=== PATIENT | male | born 1960 | race Caucasian/White ===

== ENCOUNTER 2017-09-16 08:22 | Inpatient (IN) | payer OTHER ==
[~2017-09-16] VITALS: Ht 185.4 cm; Wt 111.4 kg
[~2017-09-16 08:22] MED LIST: ACID RELIEF; ALBU90OI INH; ALPR.25 PO; Amitriptyline100 MG PO; Aspirin EC81 MG PO; Atrovent Inha12.9 GM INH; BACL10 PO; CEPH500 PO; CHLO10 PO; CHLO25 PO; CHLO5 PO; CITA20 PO; DIPH50 PO; DOXY100 PO; DULO60 PO; Desyrel50 MG PO; Diclofenac Sodi50 MG; FAMO20 PO; GABA100 PO; GABA300 PO; GABA400 PO; GABAPENTIN; HYDACE10B PO; IBUP400 PO; IBUP600 PO; IBUP800 PO; KETO10 PO; LIBRIUM; LOSA50 PO; MECL25; MELO7.5; METO100 PO; METO50 PO; MOTRIN; MULVITMIND PO; Mobic15 MG PO; NAPR500 PO; Neurontin 100100 MG PO; PROM25 PO; Pepcid40 MG PO; RXTRAM50 PO; SULTRIDS PO; THIA100 PO; TRAM50 PO; TRAZ; TRAZ100 PO; TRAZ150T57 PO; TRAZ50; TRAZ50 PO; Therapeutic M1 EAC4 PO; Trazodone HCl300 MG; Ultram50 MG PO; ZESTORETIC 20-121 EA PO; Zithromax250 MG PO; [UNRECOGNIZED DRUG - REMARK]; [UNRECOGNIZED DRUG - REMARK]
[2017-09-16 08:57] LABS: BASOPHILS ABSOLUTE AUTO 0.06 K/mm3 (0.00-0.23); BASOPHILS PERCENT AUTO 1 % (0-2); EOSINOPHILS ABSOLUTE AUTO 0.01 K/mm3 (0.00-0.68); EOSINOPHILS PERCENT AUTO 0 % (0-6); Hematocrit 43.7 % (37.0-53.0); Hemoglobin 14.5 g/dL (13.5-17.5); IMMATURE GRAN ABSOLUTE AUTO 0.03 K/mm3 (0.00-0.10); IMMATURE GRAN PERCENT AUTO 1 % (0-1); LYMPHOCYTES PERCENT AUTO 15 % (21-46); MONOCYTES ABSOLUTE AUTO 1.02 K/mm3 (0.16-1.47); MONOCYTES PERCENT AUTO 17 % (4-13); Mean Corpuscular HGB 28.5 pg (26.0-34.0); Mean Corpuscular HGB Conc 33.2 g/dL (31.5-36.5); Mean Corpuscular Volume 86 fL (80-100); Mean Platelet Volume 10.8 fL (9.1-12.4); NEUTROPHILS ABSOLUTE AUTO 4.14 K/mm3 (1.96-9.15); NEUTROPHILS PERCENT AUTO 67 % (41-73); Platelet Count 121 K/mm3 (150-400); RDW Coefficient Variation 16.2 % (11.7-14.2); RDW Standard Deviation 50.8 fL (35.1-46.3); Red Blood Cell Count 5.08 M/mm3 (4.30-5.90); White Blood Cell Count 6.16 K/mm3 (4.00-11.30)
[2017-09-16 09:12] LABS: Alanine Aminotransfer (ALT/SGP 150 U/L (12-78); Albumin, Blood 3.6 g/dL (3.4-5.0); Albumin/Globulin Ratio 0.8 (0.8-1.8); Alk Phos 60 U/L (50-136); Anion Gap 22 mmol/L (6-16); Aspartate Aminotrans (AST/SGOT 208 U/L (12-37); Bilirubin, Total 1.2 mg/dL (0.1-1.0); Blood Urea Nitrogen 10 mg/dL (8-24); Bun/Creatinine Ratio 11.6 (12.0-20.0); CO2, Blood 13 mmol/L (21-32); Calcium, Blood 9.3 mg/dL (8.5-10.1); Chloride, Blood 102 mmol/L (98-108); Creatinine, Blood 0.86 mg/dL (0.60-1.20); Ethanol (Alcohol), Blood, Med 34 mg/dL; Globulin, Blood 4.4 g/dL (2.2-4.0); Glomerular Filtration Rate >60 (60-); Glucose, Blood 130 mg/dL (70-99); Potassium, Blood 3.8 mmol/L (3.5-5.5); Sodium, Blood 137 mmol/L (136-145); Troponin I <0.015 ng/mL (0.000-0.040)
[2017-09-16] MEDS ORDERED: ALPR.25 (11:43)
[2017-09-17 05:09] LABS: Anion Gap 9 mmol/L (6-16); Blood Urea Nitrogen 19 mg/dL (8-24); Bun/Creatinine Ratio 19.9 (12.0-20.0); CO2, Blood 28 mmol/L (21-32); Calcium, Blood 8.7 mg/dL (8.5-10.1); Chloride, Blood 101 mmol/L (98-108); Creatinine, Blood 0.96 mg/dL (0.60-1.20); Glomerular Filtration Rate >60 (60-); Glucose, Blood 90 mg/dL (70-99); Potassium, Blood 3.8 mmol/L (3.5-5.5); Sodium, Blood 138 mmol/L (136-145)
[2017-09-17 06:17] LABS: U Amphetamine Screen Not Detected; U Barbituate Screen Not Detected; U Benzodiazapine Screen DETECTED; U Cocaine Screen Not Detected; U Methadone Screen Not Detected; U Methamphetamine Screen Not Detected
[2017-09-17 06:18] LABS: U Buprenorphine Screen Not Detected; U Cannabinoids Screen Not Detected; U Opiates Screen DETECTED; U Oxycodone Screen Not Detected; U Phencyclidine Screen Not Detected; U Propoxyphene Screen Not Detected
[2017-09-17 08:16] LABS: Adenovirus F 40/41 Not Detected (NOT DETECT); Astrovirus Not Detected (NOT DETECT); Campylobacter Sp Not Detected (NOT DETECT); Cryptosporidium Not Detected (NOT DETECT); Cyclospora Cayetanensis Not Detected (NOT DETECT); E. Coli O157 Not Detected (NOT DETECT); Entamoeba Histolytica Not Detected (NOT DETECT); Enteroaggregative E. coli-EAEC Not Detected (NOT DETECT); Enteropathogenic E. coli-EPEC Not Detected (NOT DETECT); Enterotoxigenic E. coli-ETEC Not Detected (NOT DETECT); Giardia Lamblia Not Detected (NOT DETECT); Norovirus GI/GII Not Detected (NOT DETECT); Plesiomonas Shigelloides Not Detected (NOT DETECT); Rotavirus A Not Detected (NOT DETECT); Salmonella Sp Not Detected (NOT DETECT); Sapovirus Not Detected (NOT DETECT); Shiga Toxin-prod E. coli-STEC Not Detected (NOT DETECT); Shigella/Enteroin E. coli-EIEC Not Detected (NOT DETECT); Vibrio Cholerae Not Detected (NOT DETECT); Vibrio Sp Not Detected (NOT DETECT); Yersinia Enterocolitica Not Detected (NOT DETECT)
[2017-09-20 06:24] LABS: Anion Gap 7 mmol/L (6-16); Blood Urea Nitrogen 13 mg/dL (8-24); Bun/Creatinine Ratio 16.6 (12.0-20.0); CO2, Blood 25 mmol/L (21-32); Calcium, Blood 8.8 mg/dL (8.5-10.1); Chloride, Blood 108 mmol/L (98-108); Creatinine, Blood 0.79 mg/dL (0.60-1.20); Glomerular Filtration Rate >60 (60-); Glucose, Blood 119 mg/dL (70-99); Magnesium, Blood 1.9 mg/dL (1.6-2.4); Potassium, Blood 3.9 mmol/L (3.5-5.5); Sodium, Blood 140 mmol/L (136-145)
[2017-09-22 12:41] LABS: Influenza A Negative (NEGATIVE); Influenza B Negative (NEGATIVE)
[2017-09-22 13:10] LABS: BASOPHILS ABSOLUTE AUTO 0.11 K/mm3 (0.00-0.23); BASOPHILS PERCENT AUTO 2 % (0-2); EOSINOPHILS ABSOLUTE AUTO 0.08 K/mm3 (0.00-0.68); EOSINOPHILS PERCENT AUTO 2 % (0-6); Hematocrit 40.3 % (37.0-53.0); Hemoglobin 12.9 g/dL (13.5-17.5); IMMATURE GRAN ABSOLUTE AUTO 0.03 K/mm3 (0.00-0.10); IMMATURE GRAN PERCENT AUTO 1 % (0-1); LYMPHOCYTES PERCENT AUTO 15 % (21-46); MONOCYTES ABSOLUTE AUTO 1.79 K/mm3 (0.16-1.47); MONOCYTES PERCENT AUTO 34 % (4-13); Mean Corpuscular HGB 29.2 pg (26.0-34.0); Mean Platelet Volume 11.2 fL (9.1-12.4); NEUTROPHILS ABSOLUTE AUTO 2.41 K/mm3 (1.96-9.15); NEUTROPHILS PERCENT AUTO 46 % (41-73); Platelet Count 141 K/mm3 (150-400); RDW Coefficient Variation 16.2 % (11.7-14.2); RDW Standard Deviation 54.3 fL (35.1-46.3); Red Blood Cell Count 4.42 M/mm3 (4.30-5.90); White Blood Cell Count 5.22 K/mm3 (4.00-11.30)
[2017-09-22 13:18] LABS: Mean Corpuscular Volume 91 fL (80-100)
[2017-09-22 13:22] LABS: Source, Urine Catheter
[2017-09-22 13:27] LABS: Alanine Aminotransfer (ALT/SGP 159 U/L (12-78); Albumin, Blood 3.3 g/dL (3.4-5.0); Albumin/Globulin Ratio 0.8 (0.8-1.8); Alk Phos 42 U/L (50-136); Anion Gap 8 mmol/L (6-16); Aspartate Aminotrans (AST/SGOT 177 U/L (12-37); Bilirubin, Total 0.5 mg/dL (0.1-1.0); Blood Urea Nitrogen 13 mg/dL (8-24); Bun/Creatinine Ratio 12.9 (12.0-20.0); CO2, Blood 24 mmol/L (21-32); Calcium, Blood 8.8 mg/dL (8.5-10.1); Chloride, Blood 101 mmol/L (98-108); Creatinine, Blood 1.01 mg/dL (0.60-1.20); Globulin, Blood 4.3 g/dL (2.2-4.0); Glomerular Filtration Rate >60 (60-); Glucose, Blood 95 mg/dL (70-99); Potassium, Blood 4.1 mmol/L (3.5-5.5); Sodium, Blood 133 mmol/L (136-145); Total Protein, Blood 7.6 g/dL (6.4-8.2)
[2017-09-22 13:36] LABS: Bilirubin, Urine Neg (Neg); Blood, Urine Neg (Neg); Glucose Qualitative, Urine Neg (Neg); Ketones, Urine Neg (Neg); Leukocyte Esterase, Urine Neg (Neg); Nitrite, Urine Neg (Neg); Protein, Urine Neg (Neg); Specific Gravity, Urine 1.005 (1.003-1.022); Urobilinogen, Urine NORM (Normal)
[2017-09-22 14:16] LABS: Appearance, Urine Clear (Clear); Color, Urine Yellow (P-Yellow)
[2017-09-22 14:57] LABS: CPK Creatine Kinase 101 U/L (39-308)
[2017-09-22 20:07] LABS: BASOPHILS ABSOLUTE AUTO 0.09 K/mm3 (0.00-0.23); BASOPHILS PERCENT AUTO 2 % (0-2); EOSINOPHILS ABSOLUTE AUTO 0.06 K/mm3 (0.00-0.68); EOSINOPHILS PERCENT AUTO 1 % (0-6); Hematocrit 36.4 % (37.0-53.0); Hemoglobin 11.6 g/dL (13.5-17.5); IMMATURE GRAN ABSOLUTE AUTO 0.01 K/mm3 (0.00-0.10); IMMATURE GRAN PERCENT AUTO 0 % (0-1); LYMPHOCYTES ABSOLUTE AUTO 0.67 K/mm3 (0.84-5.20); LYMPHOCYTES PERCENT AUTO 16 % (21-46); MONOCYTES ABSOLUTE AUTO 1.09 K/mm3 (0.16-1.47); MONOCYTES PERCENT AUTO 26 % (4-13); Mean Corpuscular HGB Conc 31.9 g/dL (31.5-36.5); Mean Corpuscular Volume 91 fL (80-100); Mean Platelet Volume 10.6 fL (9.1-12.4); NEUTROPHILS PERCENT AUTO 55 % (41-73); Platelet Count 144 K/mm3 (150-400); RDW Coefficient Variation 15.9 % (11.7-14.2); RDW Standard Deviation 53.4 fL (35.1-46.3); White Blood Cell Count 4.22 K/mm3 (4.00-11.30)
[2017-09-22 22:20] LABS: Source, Urine Catheter
[2017-09-22 22:26] LABS: Bilirubin, Urine Neg (Neg); Blood, Urine 5+ (Neg); Glucose Qualitative, Urine Neg (Neg); Ketones, Urine Neg (Neg); Leukocyte Esterase, Urine 1+ (Neg); Nitrite, Urine Neg (Neg); Protein, Urine 1+ (Neg); Urobilinogen, Urine NORM (Normal)
[2017-09-22 22:27] LABS: Appearance, Urine Bloody (Clear); Color, Urine Pale Yellow (P-Yellow)
[2017-09-22 22:50] LABS: Bacteria Not Seen /hpf; Red Blood Cells, Urine 50-100 /hpf (0-2); Squamous Epithelial Cells Not Seen /hpf (Few)
[2017-09-23 03:46] LABS: BASOPHILS ABSOLUTE AUTO 0.06 K/mm3 (0.00-0.23); BASOPHILS PERCENT AUTO 1 % (0-2); EOSINOPHILS ABSOLUTE AUTO 0.05 K/mm3 (0.00-0.68); EOSINOPHILS PERCENT AUTO 1 % (0-6); Hematocrit 39.5 % (37.0-53.0); Hemoglobin 12.3 g/dL (13.5-17.5); IMMATURE GRAN ABSOLUTE AUTO 0.01 K/mm3 (0.00-0.10); IMMATURE GRAN PERCENT AUTO 0 % (0-1); LYMPHOCYTES ABSOLUTE AUTO 0.75 K/mm3 (0.84-5.20); LYMPHOCYTES PERCENT AUTO 13 % (21-46); MONOCYTES ABSOLUTE AUTO 1.51 K/mm3 (0.16-1.47); MONOCYTES PERCENT AUTO 26 % (4-13); Mean Corpuscular HGB 28.4 pg (26.0-34.0); Mean Corpuscular HGB Conc 31.1 g/dL (31.5-36.5); Mean Corpuscular Volume 91 fL (80-100); Mean Platelet Volume 10.9 fL (9.1-12.4); NEUTROPHILS ABSOLUTE AUTO 3.55 K/mm3 (1.96-9.15); NEUTROPHILS PERCENT AUTO 60 % (41-73); Platelet Count 143 K/mm3 (150-400); RDW Coefficient Variation 15.9 % (11.7-14.2); RDW Standard Deviation 53.1 fL (35.1-46.3); Red Blood Cell Count 4.33 M/mm3 (4.30-5.90); White Blood Cell Count 5.93 K/mm3 (4.00-11.30)
[2017-09-23 04:07] LABS: Magnesium, Blood 1.7 mg/dL (1.6-2.4)
[2017-09-23 04:08] LABS: Alanine Aminotransfer (ALT/SGP 117 U/L (12-78); Albumin, Blood 2.9 g/dL (3.4-5.0); Albumin/Globulin Ratio 0.7 (0.8-1.8); Alk Phos 36 U/L (50-136); Anion Gap 4 mmol/L (6-16); Aspartate Aminotrans (AST/SGOT 99 U/L (12-37); Bilirubin, Total 0.5 mg/dL (0.1-1.0); Blood Urea Nitrogen 10 mg/dL (8-24); Bun/Creatinine Ratio 10.9 (12.0-20.0); CO2, Blood 29 mmol/L (21-32); Chloride, Blood 107 mmol/L (98-108); Creatinine, Blood 0.92 mg/dL (0.60-1.20); Globulin, Blood 4.1 g/dL (2.2-4.0); Glomerular Filtration Rate >60 (60-); Glucose, Blood 93 mg/dL (70-99); Potassium, Blood 3.7 mmol/L (3.5-5.5); Sodium, Blood 140 mmol/L (136-145)
[2017-09-23 04:09] LABS: Calcium, Blood 7.6 mg/dL (8.5-10.1)
[2017-09-24 10:40] LABS: Vancomycin, Trough 10.6 ug/mL (5.0-10.0)
[2017-09-25 04:40] LABS: Anion Gap 9 mmol/L (6-16); Blood Urea Nitrogen 5 mg/dL (8-24); Bun/Creatinine Ratio 6.4 (12.0-20.0); CO2, Blood 25 mmol/L (21-32); Calcium, Blood 7.7 mg/dL (8.5-10.1); Chloride, Blood 108 mmol/L (98-108); Creatinine, Blood 0.78 mg/dL (0.60-1.20); Glomerular Filtration Rate >60 (60-); Glucose, Blood 115 mg/dL (70-99); Potassium, Blood 3.4 mmol/L (3.5-5.5); Sodium, Blood 142 mmol/L (136-145)
[2017-09-27 06:38] LABS: Anion Gap 6 mmol/L (6-16); Blood Urea Nitrogen 9 mg/dL (8-24); Bun/Creatinine Ratio 13.5 (12.0-20.0); CO2, Blood 28 mmol/L (21-32); Calcium, Blood 8.5 mg/dL (8.5-10.1); Chloride, Blood 110 mmol/L (98-108); Creatinine, Blood 0.67 mg/dL (0.60-1.20); Glomerular Filtration Rate >60 (60-); Glucose, Blood 98 mg/dL (70-99); Potassium, Blood 3.9 mmol/L (3.5-5.5); Sodium, Blood 144 mmol/L (136-145)
[2017-09-30 06:06] LABS: Anion Gap 7 mmol/L (6-16); Blood Urea Nitrogen 10 mg/dL (8-24); Bun/Creatinine Ratio 13.9 (12.0-20.0); CO2, Blood 29 mmol/L (21-32); Calcium, Blood 9.2 mg/dL (8.5-10.1); Chloride, Blood 104 mmol/L (98-108); Creatinine, Blood 0.72 mg/dL (0.60-1.20); Glomerular Filtration Rate >60 (60-); Glucose, Blood 113 mg/dL (70-99); Potassium, Blood 3.8 mmol/L (3.5-5.5); Sodium, Blood 140 mmol/L (136-145)
[2017-10-08 05:27] LABS: BASOPHILS ABSOLUTE AUTO 0.06 K/mm3 (0.00-0.23); BASOPHILS PERCENT AUTO 1 % (0-2); EOSINOPHILS ABSOLUTE AUTO 0.11 K/mm3 (0.00-0.68); EOSINOPHILS PERCENT AUTO 2 % (0-6); Hemoglobin 11.2 g/dL (13.5-17.5); IMMATURE GRAN ABSOLUTE AUTO 0.02 K/mm3 (0.00-0.10); IMMATURE GRAN PERCENT AUTO 0 % (0-1); LYMPHOCYTES ABSOLUTE AUTO 1.61 K/mm3 (0.84-5.20); LYMPHOCYTES PERCENT AUTO 30 % (21-46); MONOCYTES ABSOLUTE AUTO 0.78 K/mm3 (0.16-1.47); MONOCYTES PERCENT AUTO 15 % (4-13); Mean Corpuscular HGB 28.1 pg (26.0-34.0); Mean Corpuscular Volume 88 fL (80-100); Mean Platelet Volume 10.2 fL (9.1-12.4); NEUTROPHILS ABSOLUTE AUTO 2.72 K/mm3 (1.96-9.15); NEUTROPHILS PERCENT AUTO 51 % (41-73); Platelet Count 372 K/mm3 (150-400); RDW Standard Deviation 52.2 fL (35.1-46.3); Red Blood Cell Count 3.99 M/mm3 (4.30-5.90)
[2017-10-08 05:51] LABS: Anion Gap 7 mmol/L (6-16); Blood Urea Nitrogen 13 mg/dL (8-24); Bun/Creatinine Ratio 17.7 (12.0-20.0); CO2, Blood 28 mmol/L (21-32); Calcium, Blood 8.6 mg/dL (8.5-10.1); Chloride, Blood 106 mmol/L (98-108); Creatinine, Blood 0.74 mg/dL (0.60-1.20); Glomerular Filtration Rate >60 (60-); Glucose, Blood 102 mg/dL (70-99); Potassium, Blood 3.8 mmol/L (3.5-5.5); Sodium, Blood 141 mmol/L (136-145)
[2017-10-25] MEDS ORDERED: CALCIUM WITH V1 EACH PO (08:36)
[2017-10-25] MEDS ORDERED: CYAN500 PO (08:43)
[2017-10-25] MEDS ORDERED: Capsaicin60 GM TOP (08:43)
[2017-10-25] MEDS ORDERED: GABA600 PO (08:43)
[2017-10-25] MEDS ORDERED: METO50ER PO (08:44)
[2017-10-25] MEDS ORDERED: NICO21TP TOP (08:45)
[2017-10-25] MEDS ORDERED: PANT40 PO (08:45)
[2017-10-25] MEDS ORDERED: QUET100 PO (08:45)
[2017-10-25] MEDS ORDERED: THIA100 PO (08:46)
[2017-10-25] MEDS ORDERED: TRAZ100 PO (08:46)
[2017-10-25] MEDS ORDERED: PRAM.125 PO (08:46)
[2017-10-25] MEDS ORDERED: XARELTO20 MG PO (08:46)
[2017-10-25] MEDS ORDERED: ASPI81CH PO (08:52)
[2017-10-25] MEDS ORDERED: MAALOX PLUS PO (08:53)
[2017-10-25] MEDS ORDERED: THERA TABLET400 MCG PO (08:56)
== END 2017-10-25 11:07 | DRG 896 ==
LOC: ER 08:22 → PCU 08:23 → ERHOLD 08:23 → PCU 14:58 → UNDODEPER 16:52 → PCU 09-17 12:21 → ERHOLD 09-17 17:13 → MEDS 09-17 17:13 → PCU 09-17 17:13 → ICUE 09-22 19:40 → PCU 09-25 18:43 → MEDS 09-26 16:05 → ENPENDDIS 10-25 08:14 → MEDS 10-25 11:07
PROVIDERS: Emergency Medicine; Family Medicine; Internal Medicine
PROC: HZ2ZZZZ Detoxification Services for Substance Abuse Treatment (ICD-10-PCS; principal; 2017-09-17)
DX: F10.27 Alcohol dependence with alcohol-induced persisting dementia (principal); G92 Toxic encephalopathy; F10.231 Alcohol dependence with withdrawal delirium; E87.2 Acidosis; I95.9 Hypotension, unspecified; G30.9 Alzheimer's disease, unspecified; G31.2 Degeneration of nervous system due to alcohol; F02.81 Dementia in other diseases classified elsewhere, unspecified severity, with behavioral disturbance; I82.4Z2 Acute embolism and thrombosis of unspecified deep veins of left distal lower extremity; I48.91 Unspecified atrial fibrillation; G62.1 Alcoholic polyneuropathy; E87.6 Hypokalemia; F17.210 Nicotine dependence, cigarettes, uncomplicated; M79.671 Pain in right foot; B19.20 Unspecified viral hepatitis C without hepatic coma; Z59.0 Homelessness; Z86.19 Personal history of other infectious and parasitic diseases; R74.0 Nonspecific elevation of levels of transaminase and lactic acid dehydrogenase [LDH]; Z91.83 Wandering in diseases classified elsewhere
CPT/HCPCS: 36415; 70450; 71045; 71046; 71260; 80048; 80053; 80202; 81001; 81003; 82140; 82550; 82607; 82746; 82947; 83605; 83735; 83880; 84443; 84484; 84550; 84600; 85025; 86702; 87040; 87507; 87804; 92523; 93005; 93010; 93306; 93970; 94760; 96365; 96366; 96368; 96375; 97110; 97116; 97162; 97530; 99285; C1751; G0480; G8978; G8979; J0713; J1650; J1956; J2060; J2405; J3010; J3370; J3411; J3475; J7030; J7042; J7050; Q9967

== ENCOUNTER 2018-02-21 14:01 | Emergency (ER) | payer OTHER ==
[~2018-02-21] VITALS: Ht 185.4 cm; Wt 99.8 kg
[~2018-02-21 14:01] MED LIST changes: +ALPR.25; +ASPI81CH PO; +CALCIUM WITH V1 EACH PO; +CYAN500 PO; +Capsaicin60 GM TOP; +GABA600 PO; +MAALOX PLUS PO; +METO50ER PO; +NICO21TP TOP; +PANT40 PO; +PRAM.125 PO; +QUET100 PO; +THERA TABLET400 MCG PO; +XARELTO20 MG PO
[2018-02-21 14:46] LABS: BASOPHILS ABSOLUTE AUTO 0.04 K/mm3 (0.00-0.23); BASOPHILS PERCENT AUTO 1 % (0-2); EOSINOPHILS ABSOLUTE AUTO 0.12 K/mm3 (0.00-0.68); EOSINOPHILS PERCENT AUTO 2 % (0-6); Hematocrit 41.9 % (37.0-53.0); Hemoglobin 13.4 g/dL (13.5-17.5); IMMATURE GRAN ABSOLUTE AUTO 0.01 K/mm3 (0.00-0.10); IMMATURE GRAN PERCENT AUTO 0 % (0-1); LYMPHOCYTES PERCENT AUTO 39 % (21-46); MONOCYTES ABSOLUTE AUTO 0.65 K/mm3 (0.16-1.47); MONOCYTES PERCENT AUTO 13 % (4-13); Mean Corpuscular HGB 26.2 pg (26.0-34.0); Mean Corpuscular Volume 82 fL (80-100); NEUTROPHILS ABSOLUTE AUTO 2.32 K/mm3 (1.96-9.15); NEUTROPHILS PERCENT AUTO 45 % (41-73); Platelet Count 216 K/mm3 (150-400); RDW Coefficient Variation 15.8 % (11.7-14.2); RDW Standard Deviation 47.9 fL (35.1-46.3); Red Blood Cell Count 5.11 M/mm3 (4.30-5.90); White Blood Cell Count 5.14 K/mm3 (4.00-11.30)
[2018-02-21 14:59] LABS: Alanine Aminotransfer (ALT/SGP 51 U/L (12-78); Albumin, Blood 3.8 g/dL (3.4-5.0); Alk Phos 66 U/L (50-136); Anion Gap 8 mmol/L (6-16); Aspartate Aminotrans (AST/SGOT 36 U/L (12-37); Bilirubin, Total 0.4 mg/dL (0.1-1.0); Blood Urea Nitrogen 18 mg/dL (8-24); CO2, Blood 27 mmol/L (21-32); Calcium, Blood 8.9 mg/dL (8.5-10.1); Chloride, Blood 106 mmol/L (98-108); Globulin, Blood 3.9 g/dL (2.2-4.0); Glomerular Filtration Rate >60 (60-); Glucose, Blood 100 mg/dL (70-99); Potassium, Blood 4.2 mmol/L (3.5-5.5); Sodium, Blood 141 mmol/L (136-145); Total Protein, Blood 7.7 g/dL (6.4-8.2); Troponin I <0.015 ng/mL (0.000-0.040)
[2018-02-21] MEDS ORDERED: ACET325 PO (15:03)
[2018-02-21] MEDS ORDERED: WARF6 PO (15:08)
== END 2018-02-21 17:20 | disposition home or self-care (01) ==
LOC: ER 14:01
PROVIDERS: Emergency Medicine
DX: R07.89 Other chest pain (principal); F41.9 Anxiety disorder, unspecified; F32.9 Major depressive disorder, single episode, unspecified; F17.210 Nicotine dependence, cigarettes, uncomplicated; F03.90 Unspecified dementia, unspecified severity, without behavioral disturbance, psychotic disturbance, mood disturbance, and anxiety; Z79.899 Other long term (current) drug therapy; Z79.01 Long term (current) use of anticoagulants
CPT/HCPCS: 71046; 80053; 84484; 85025; 93005; 93010; 99284-25

== ENCOUNTER → 2020-01-02 | Outpatient (CLI) | payer OTHER ==
[~2020-01-02] MED LIST changes: +ACET325 PO; +WARF6 PO
[2020-01-02 12:14] LABS: International Normalized Ratio 2.02; Prothrombin Time Results 20.8 Sec (9.7-11.5)
== END ==
LOC: LAB 09:40 → LAB SHORT 09:40
PROVIDERS: Nurse Practitioner Family
DX: I48.0 Paroxysmal atrial fibrillation (principal)
CPT/HCPCS: 85610

== ENCOUNTER → 2020-02-03 | Outpatient (CLI) | payer OTHER ==
[2020-02-03 11:17] LABS: International Normalized Ratio 1.76; Prothrombin Time Results 18.2 Sec (9.7-11.5)
== END ==
LOC: LAB 08:55 → LAB SHORT 08:55
PROVIDERS: Nurse Practitioner Family
DX: I48.0 Paroxysmal atrial fibrillation (principal)
CPT/HCPCS: 85610

== ENCOUNTER → 2022-09-06 | Outpatient (CLI) | payer OTHER ==
[~2022-09-06] MED LIST changes: +PANTOPRAZOLE SO40 M1 PO
[2022-09-06 12:49] LABS: International Normalized Ratio 2.66; Prothrombin Time Results 26.2 Sec (9.7-11.5)
== END | disposition home or self-care (01) ==
LOC: LAB SHORT 09:25 → LAB 09:25
PROVIDERS: Family Medicine
DX: I48.91 Unspecified atrial fibrillation (principal)
CPT/HCPCS: 85610

== ENCOUNTER → 2022-10-05 | Outpatient (CLI) | payer OTHER ==
[2022-10-05 13:27] LABS: International Normalized Ratio 2.74; Prothrombin Time Results 26.9 Sec (9.7-11.5)
== END | disposition home or self-care (01) ==
LOC: LAB SHORT 10:40 → LAB 10:40
PROVIDERS: Family Medicine
DX: R79.1 Abnormal coagulation profile (principal)
CPT/HCPCS: 85610

== ENCOUNTER → 2022-11-03 | Outpatient (CLI) | payer OTHER ==
[2022-11-03 14:00] LABS: International Normalized Ratio 2.2; Prothrombin Time Results 21.9 Sec (9.7-11.5)
== END | disposition home or self-care (01) ==
LOC: LAB 11:07 → LAB SHORT 11:07
PROVIDERS: Student in an Organized Health Care Education/Training Program
DX: I48.91 Unspecified atrial fibrillation (principal)
CPT/HCPCS: 85610

== ENCOUNTER → 2022-12-29 | Outpatient (CLI) | payer OTHER ==
[2022-12-29 15:39] LABS: International Normalized Ratio 3.72; Prothrombin Time Results 36.3 Sec (9.7-11.5)
== END | disposition home or self-care (01) ==
LOC: LAB 11:00 → LAB SHORT 11:00 → LAB FUT 12-06 15:20 → EDSTATUS 12-06 15:20
PROVIDERS: Family Medicine
DX: Z79.01 Long term (current) use of anticoagulants (principal); Z51.81 Encounter for therapeutic drug level monitoring; E87.1 Hypo-osmolality and hyponatremia; D53.9 Nutritional anemia, unspecified; I50.33 Acute on chronic diastolic (congestive) heart failure; R79.1 Abnormal coagulation profile
CPT/HCPCS: 85610

== ENCOUNTER → 2023-01-24 | Outpatient (CLI) | payer OTHER ==
[2023-01-24 11:22] LABS: International Normalized Ratio 2.03; Prothrombin Time Results 20.5 Sec (9.7-11.5)
== END | disposition home or self-care (01) ==
LOC: LAB 06:50 → LAB SHORT 06:50
PROVIDERS: Student in an Organized Health Care Education/Training Program
DX: I48.0 Paroxysmal atrial fibrillation (principal)
CPT/HCPCS: 85610

== ENCOUNTER 2023-02-16 07:56 | Inpatient (IN) | payer OTHER ==
[~2023-02-16] VITALS: Ht 185.4 cm; Wt 138.0 kg
[~2023-02-16 07:56] MED LIST changes: +B-1100 M1 PO; +DAILY-VITE1 EAC1 PO; -THERA TABLET400 MCG PO
[2023-02-16 09:03] LABS: BASOPHILS ABSOLUTE AUTO 0.05 K/mm3 (0.00-0.23); BASOPHILS PERCENT AUTO 0 % (0-2); EOSINOPHILS ABSOLUTE AUTO 0.06 K/mm3 (0.00-0.68); EOSINOPHILS PERCENT AUTO 0 % (0-6); Hematocrit 39.2 % (37.0-53.0); Hemoglobin 12.9 g/dL (13.5-17.5); IMMATURE GRAN ABSOLUTE AUTO 0.17 K/mm3 (0.00-0.10); IMMATURE GRAN PERCENT AUTO 1 % (0-1); LYMPHOCYTES ABSOLUTE AUTO 1.44 K/mm3 (0.84-5.20); LYMPHOCYTES PERCENT AUTO 10 % (21-46); MONOCYTES ABSOLUTE AUTO 1.09 K/mm3 (0.16-1.47); MONOCYTES PERCENT AUTO 7 % (4-13); Mean Corpuscular HGB 29.4 pg (26.0-34.0); Mean Corpuscular HGB Conc 32.9 g/dL (31.5-36.5); Mean Corpuscular Volume 89 fL (80-100); Mean Platelet Volume 10.6 fL (9.1-12.4); NEUTROPHILS ABSOLUTE AUTO 12.38 K/mm3 (1.96-9.15); NEUTROPHILS PERCENT AUTO 82 % (41-73); Platelet Count 148 K/mm3 (150-400); RDW Coefficient Variation 13.9 % (11.7-14.2); RDW Standard Deviation 45.4 fL (35.1-46.3); Red Blood Cell Count 4.39 M/mm3 (4.30-5.90); White Blood Cell Count 15.19 K/mm3 (4.00-11.30)
[2023-02-16 09:19] LABS: International Normalized Ratio 3.78; Prothrombin Time Results 36.8 Sec (9.7-11.5)
[2023-02-16 09:20] LABS: Albumin, Blood 3.1 g/dL (3.4-5.0); Albumin/Globulin Ratio 0.7 (0.8-1.8); Bilirubin, Direct 0.1 mg/dL (0.0-0.3); Bilirubin, Indirect 0.3 mg/dL (0.1-0.7); Bilirubin, Total 0.4 mg/dL (0.1-1.0); Bun/Creatinine Ratio 15.5 (12.0-20.0); Calcium, Blood 8.8 mg/dL (8.5-10.1); Creatinine, Blood 1.03 mg/dL (0.60-1.20); Globulin, Blood 4.5 g/dL (2.2-4.0); Magnesium, Blood 1.7 mg/dL (1.6-2.4); Phosphorus, Blood 1.5 mg/dL (2.5-4.9); Potassium, Blood 3.8 mmol/L (3.5-5.5); Total Protein, Blood 7.6 g/dL (6.4-8.2)
[2023-02-16 10:05] LABS: Source, Urine Clean Catch
[2023-02-16 10:08] LABS: Appearance, Urine Clear (Clear); Bilirubin, Urine Neg (Neg); Blood, Urine Neg (Neg); Color, Urine Yellow (P-Yellow); Glucose Qualitative, Urine Neg (Neg); Ketones, Urine Neg (Neg); Leukocyte Esterase, Urine Neg (Neg); Nitrite, Urine Neg (Neg); Protein, Urine Neg (Neg); Specific Gravity, Urine 1.015 (1.003-1.022); Urobilinogen, Urine NORM (Normal)
[2023-02-16 17:26] VITALS: BP 117/75
--- NOTE | 2023-02-16 19:07 | NUR ---
SHIFT SUMMARY PT ADMITTED THIS SHIFT. PT ARRIVED VIA GURNEY AT 1705. ADMISSION COMPLETED AND AWAITING MED REC FROM [facility]. PHOTOS OF WEEPING EDEMA/CELLULITIS IN CHART. IV MEDICATION INFUSING PER EMAR. REPORT GIVEN TO MANAGER CONSUMER INSIGHTS NURSE WHO WILL ASSUME CARE AT THIS TIME. THIS NURSE WAS NOT NOTIFIED OF PT TEMP OF 100.7, MANAGER CONSUMER INSIGHTS NURSE NOTIFIED WHO WILL TREAT. BED IN LOW POSITION, CALL LIGHT WITHIN REACH. PT AXO X3-4 ALTHOUGH PT MAKES ODD COMMENTS AT TIMES.
[2023-02-16 19:59] VITALS: BP 128/77
[2023-02-16] MEDS ORDERED: ABILIFY MYCITE5 M2 PO (20:12)
[2023-02-16] MEDS ORDERED: Acetaminophen650 M1 PO ×2 (20:12→20:29)
[2023-02-16] MEDS ORDERED: CELE200 PO (20:13)
[2023-02-16] MEDS ORDERED: COLACE100 MG PO (20:13)
[2023-02-16] MEDS ORDERED: OYSTER SHELL 51 EAC2 PO (20:13)
[2023-02-16] MEDS ORDERED: Gabapentin600 MG PO (20:14)
[2023-02-16] MEDS ORDERED: DULO60 PO (20:14)
[2023-02-16] MEDS ORDERED: MIRALAX17 GM PO (20:15)
[2023-02-16] MEDS ORDERED: GLUCHON PO (20:20)
[2023-02-16] MEDS ORDERED: METO50ER PO (20:21)
[2023-02-16] MEDS ORDERED: PANT40 PO (20:24)
[2023-02-16] MEDS ORDERED: PRAM.125 PO (20:24)
[2023-02-16] MEDS ORDERED: TOPI100 PO (20:25)
[2023-02-16] MEDS ORDERED: VITAMIN B-1100 M1 PO (20:25)
[2023-02-16] MEDS ORDERED: QUET300 PO (20:25)
[2023-02-16] MEDS ORDERED: Coumadin7.5 MG PO (20:26)
[2023-02-16] MEDS ORDERED: B-121000 MC3 PO (20:26)
[2023-02-16] MEDS ORDERED: CYCL10 PO (20:27)
[2023-02-16] MEDS ORDERED: TRAZ50 PO (20:28)
[2023-02-16] MEDS ORDERED: TRAZ100 PO (20:28)
[2023-02-16] MEDS ORDERED: DULCOLAX400 MG/5 M PO (20:29)
[2023-02-16] MEDS ORDERED: BISA10S PR (20:30)
[2023-02-16] MEDS ORDERED: VOLTAREN ARTHRI20 GM TOP (20:31)
[2023-02-16] MEDS ORDERED: Mucus Relief400 MG PO (20:32)
[2023-02-16] MEDS ORDERED: LOPERAMIDE212 PO (20:39)
[2023-02-16] MEDS ORDERED: NYSTATIN15 GM TOP (20:40)
[2023-02-16] MEDS ORDERED: NASAL SPRAY88 ML (20:44)
--- NOTE | 2023-02-17 04:21 | NUR ---
SHIFT SUMMARY PATIENT HAD NO ACUTE CHANGES. AXO X3 WITH CONFUSION. ONE ASSIST W/FWW TO BR. TEMP 100.5 AND TYLENOL 650 MG GIVEN WITH RECHECKING FINALLY DOWN TO 98.8. REPORTED LEFT LEG CELLULITIS PAIN AND IV TORADOL 15 MG GIVEN WITH GOOD EFFECT. PATIENT ABLE TO GO BACK TO SLEEP. DENIES CHEST PAIN, SOB, AND N/V. SLEPT MOST OF THE SHIFT. PIV REMAINS INTACT. IV ABX INFUSED. CALL LIGHT IN REACH. BED IN LOWEST POSITION AND ALARM ACTIVATED. WILL CONTINUE TO MONITOR UNTIL DAY SHIFT NURSE ASSUMES CARE.
[2023-02-17 05:10] VITALS: BP 112/75
[2023-02-17 05:15] LABS: BASOPHILS ABSOLUTE AUTO 0.09 K/mm3 (0.00-0.23); BASOPHILS PERCENT AUTO 1 % (0-2); EOSINOPHILS ABSOLUTE AUTO 0.09 K/mm3 (0.00-0.68); EOSINOPHILS PERCENT AUTO 1 % (0-6); Hematocrit 43.1 % (37.0-53.0); Hemoglobin 13.7 g/dL (13.5-17.5); IMMATURE GRAN ABSOLUTE AUTO 0.27 K/mm3 (0.00-0.10); IMMATURE GRAN PERCENT AUTO 2 % (0-1); LYMPHOCYTES ABSOLUTE AUTO 1.82 K/mm3 (0.84-5.20); LYMPHOCYTES PERCENT AUTO 13 % (21-46); MONOCYTES ABSOLUTE AUTO 1.62 K/mm3 (0.16-1.47); MONOCYTES PERCENT AUTO 12 % (4-13); Mean Corpuscular HGB 29.1 pg (26.0-34.0); Mean Corpuscular HGB Conc 31.8 g/dL (31.5-36.5); Mean Corpuscular Volume 92 fL (80-100); Mean Platelet Volume 10.4 fL (9.1-12.4); NEUTROPHILS ABSOLUTE AUTO 9.93 K/mm3 (1.96-9.15); NEUTROPHILS PERCENT AUTO 72 % (41-73); Platelet Count 143 K/mm3 (150-400); RDW Standard Deviation 47.2 fL (35.1-46.3); Red Blood Cell Count 4.71 M/mm3 (4.30-5.90); White Blood Cell Count 13.82 K/mm3 (4.00-11.30)
[2023-02-17 05:29] LABS: International Normalized Ratio 3.09; Prothrombin Time Results 30.4 Sec (9.7-11.5)
[2023-02-17 05:49] LABS: Albumin, Blood 2.7 g/dL (3.4-5.0); Albumin/Globulin Ratio 0.6 (0.8-1.8); Bilirubin, Total 0.8 mg/dL (0.1-1.0); Bun/Creatinine Ratio 15.3 (12.0-20.0); Calcium, Blood 8.4 mg/dL (8.5-10.1); Creatinine, Blood 0.98 mg/dL (0.60-1.20); Globulin, Blood 4.4 g/dL (2.2-4.0); Total Protein, Blood 7.1 g/dL (6.4-8.2)
[2023-02-17 08:00] VITALS: BP 162/97
[2023-02-17 08:01] VITALS: BP 162/97
[2023-02-17 14:06] VITALS: BP 125/81
--- NOTE | 2023-02-17 19:13 | NUR ---
PT A/O X 2, FORGETFUL, EASILY RE-ORIENTED TO SITUATION AND HAS BEEN PLEASANT AND COOPERATIVE WITH CARE. PT IS ONE ASSIST USES URINAL AT BEDSIDE. PT LLE CELLULITIS HAS SMALL AMOUNT OF SEROUS DRAINAGE. PT TOLERATING ABX TX. PT EATING WELL. DENTAL HYGEINIST VISITED PT TODAY. PAIN TO LLE MANAGED WITH TORADOL AT THIS TIME. PT HAD FEVER THROUGHOUT THE DAY. TYLENOL EFFECTIVE IN TREATING FEVER.
--- NOTE | 2023-02-17 19:35 | NUR ---
PT EDUCATED ON RISK FOR IGNITION SOURCES AND RISK OF INJURY WHILE OXYGEN IS IN USE. PT REPORTS HE SMOKES BUT DENIES HAVING IGNITION MATERIALS WITH HIM. PT IS FORGETFUL AND WILL REQUEST TO GO OUTSIDE TO SMOKE. PT IS REMINDED AND RE-ORIENTED TO SITUATION EACH INCIDENT THAT THERE IS NO SMOKING ON HOSPITAL GROUNDS. PT ALSO OFFERED NICOTINE PATCH OR GUM FOR WITHDRAWALS AND EACH TIME PT HAS REFUSED THIS MEDICATION. PT HAS BEEN PLEASANT AND COMPLIANT WITH RULES AND VERBALIZED UNDERSTANDING EACH TIME. PT IS NOT CURRENTLY USING OXYGEN.
[2023-02-17 19:44] VITALS: BP 152/111
[2023-02-18 05:21] VITALS: BP 126/74
--- NOTE | 2023-02-18 05:33 | NUR ---
SHIFT SUMMARY: GETACHEW IS A&O X 2-3. VSS, NO ACUTE EVENTS OVERNIGHT. HE IS NOT REQUIRING SUPPLEMENTAL OXYGEN. HE HAS REPORTED MODERATE PAIN CONTROL WITH THE APAP AND TORADOL. HE HAS USED THE URINAL WITHOUT DIFFICULTY THIS SHIFT. PT IS A STANDBY ASSIST, BUT FORGETS TO CALL BEFORE GETTING UP, BED ALARM IN PLACE. HE IS TOLERATING PO INTAKE WELL. LLE WITH CONTINUED REDNESS, HEAT, AND WEEPING. IV TO R AC PATENT. PT IS LYING IN BED WITH THE CALL LIGHT IN REACH. PT EDUCATED ON RISK REGARDING IGNITION SOURCES AND RISK OF INJURY WHILE OXYGEN IS IN USE. PT VERBALIZED UNDERSTANDING AND DENIES POSESSION OF ANY SOURCES OF SPARK OR FLAME. HE IS LYING IN BED WITH THE CALL LIGHT IN REACH. WCTM UNTIL REPORT IS GIVEN TO DAY SHIFT RN.
[2023-02-18 06:01] LABS: BASOPHILS ABSOLUTE AUTO 0.07 K/mm3 (0.00-0.23); BASOPHILS PERCENT AUTO 1 % (0-2); EOSINOPHILS ABSOLUTE AUTO 0.25 K/mm3 (0.00-0.68); EOSINOPHILS PERCENT AUTO 2 % (0-6); Hematocrit 36.5 % (37.0-53.0); Hemoglobin 12.1 g/dL (13.5-17.5); IMMATURE GRAN ABSOLUTE AUTO 0.62 K/mm3 (0.00-0.10); IMMATURE GRAN PERCENT AUTO 5 % (0-1); LYMPHOCYTES ABSOLUTE AUTO 1.83 K/mm3 (0.84-5.20); LYMPHOCYTES PERCENT AUTO 14 % (21-46); MONOCYTES ABSOLUTE AUTO 1.69 K/mm3 (0.16-1.47); MONOCYTES PERCENT AUTO 13 % (4-13); Mean Corpuscular HGB 29.5 pg (26.0-34.0); Mean Corpuscular HGB Conc 33.2 g/dL (31.5-36.5); Mean Corpuscular Volume 89 fL (80-100); Mean Platelet Volume 10.3 fL (9.1-12.4); NEUTROPHILS ABSOLUTE AUTO 8.83 K/mm3 (1.96-9.15); NEUTROPHILS PERCENT AUTO 66 % (41-73); Platelet Count 158 K/mm3 (150-400); RDW Coefficient Variation 13.9 % (11.7-14.2); RDW Standard Deviation 45.2 fL (35.1-46.3); White Blood Cell Count 13.29 K/mm3 (4.00-11.30)
[2023-02-18 06:13] LABS: International Normalized Ratio 2.29; Prothrombin Time Results 22.9 Sec (9.7-11.5)
[2023-02-18 06:17] LABS: Bun/Creatinine Ratio 14.1 (12.0-20.0); Calcium, Blood 8.6 mg/dL (8.5-10.1); Creatinine, Blood 0.93 mg/dL (0.60-1.20); Potassium, Blood 3.4 mmol/L (3.5-5.5)
[2023-02-18 07:39] VITALS: BP 114/84
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
[2023-02-18 16:24] VITALS: BP 112/80
--- NOTE | 2023-02-18 16:49 | NUR ---
SHIFT SUMMARY PATIENT IS ALERT AND ORIENTED X3 AND FORGETFUL. PATIENT HAS HAD NO ACUTE EVENTS THIS SHIFT. PATIENT REMAINS FORGETFUL AND UNAWARE OF LIMITATIONS. PATIENT KEEPS SETTING OFF CHAIR/BED ALARM. ALARMS HAVE BEEN USED AND EDUCATION GIVEN. PATIENT HAS COMPLAINED OF PAIN ONCE IN LEGS AND MEDICATED PER EMAR. PATIENT HAS NOT COMPLAINED OF SOB, NAUSEA, OR VOMITTING. BED IN LOCKED AND LOWEST POSITION.
[2023-02-18 20:08] VITALS: BP 156/97
[2023-02-19 03:21] VITALS: BP 128/72
[2023-02-19 04:43] LABS: International Normalized Ratio 2.6; Prothrombin Time Results 25.9 Sec (9.7-11.5)
[2023-02-19 04:51] LABS: Calcium, Blood 8.6 mg/dL (8.5-10.1); Creatinine, Blood 0.93 mg/dL (0.60-1.20); Potassium, Blood 3.6 mmol/L (3.5-5.5)
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
[2023-02-19 07:46] VITALS: BP 118/77
[2023-02-19 16:24] VITALS: BP 126/71
[2023-02-19 19:20] VITALS: BP 135/84
[2023-02-20 02:14] VITALS: BP 117/91
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
[2023-02-20 05:42] LABS: Hematocrit 35.8 % (37.0-53.0); Hemoglobin 11.8 g/dL (13.5-17.5); Mean Corpuscular HGB 28.9 pg (26.0-34.0); Mean Corpuscular Volume 88 fL (80-100); Mean Platelet Volume 9.9 fL (9.1-12.4); Platelet Count 207 K/mm3 (150-400); RDW Coefficient Variation 13.7 % (11.7-14.2); RDW Standard Deviation 44.6 fL (35.1-46.3); Red Blood Cell Count 4.08 M/mm3 (4.30-5.90); White Blood Cell Count 9.69 K/mm3 (4.00-11.30)
[2023-02-20 05:52] LABS: International Normalized Ratio 2.76; Prothrombin Time Results 27.4 Sec (9.7-11.5)
[2023-02-20 06:06] LABS: Bun/Creatinine Ratio 18.2 (12.0-20.0); Calcium, Blood 8.6 mg/dL (8.5-10.1); Creatinine, Blood 0.99 mg/dL (0.60-1.20); Potassium, Blood 3.7 mmol/L (3.5-5.5)
[2023-02-20 08:06] VITALS: BP 111/74
[2023-02-20] MEDS ORDERED: VISBIOME 112.51 EACH PO (12:48)
[2023-02-20] MEDS ORDERED: VITAMIN D31000 UNI1 PO (12:49)
[2023-02-20] MEDS ORDERED: BACITRACIN ZIN1 EAC1 TOP (12:49)
[2023-02-20] MEDS ORDERED: CEPH500 PO (12:49)
[2023-02-20] MEDS ORDERED: HYDROCORTISON28.4 G4 TOP (12:50)
--- NOTE | 2023-02-20 14:49 | NUR ---
PT DISCHARGED BACK TO [facility] AT THIS TIME. AOX3 AND COOPERATIVE OF CARE. PT ABLE TO BE A STAND BY TRANSFER. LLE WAS STILL RED AND WEEPING. BANDAGE WAS PLACED PRIOR TO DISCHARE. NEW SET OF CLEAN SWEATS WERE GIVEN TO PT SO HE HAD CLEAN CLOTHES TO WEAR HOME. PT HAD PAPERWORK REVIEWED AND EDUCATIONAL MATERIAL SENT WITH PT. DURING HOURLY ROUNDING PT EDUCATED ON IGNITION SOURCES AND RISK OF INJURY WHILE O2 IS IN USE. PT VERBALIZED UNDERSTANDING. CALLED [facility] PRIOR TO PT TRANSPORTING OVER. NO DISTRESS NOTED PT TRANSPORTED VIA WHEELCHAIR.
== END 2023-02-20 13:38 | disposition home or self-care (01) | DRG 871 ==
LOC: ER 07:56 → MEDS 13:05
PROVIDERS: Internal Medicine; Student in an Organized Health Care Education/Training Program; ADMIT Internal Medicine
DX: A41.9 Sepsis, unspecified organism (principal); G92.9 Unspecified toxic encephalopathy; L03.116 Cellulitis of left lower limb; F05 Delirium due to known physiological condition; I48.92 Unspecified atrial flutter; Z68.41 Body mass index [BMI] 40.0-44.9, adult; I48.20 Chronic atrial fibrillation, unspecified; F10.20 Alcohol dependence, uncomplicated; B18.2 Chronic viral hepatitis C; I87.022 Postthrombotic syndrome with inflammation of left lower extremity; G62.9 Polyneuropathy, unspecified; K21.9 Gastro-esophageal reflux disease without esophagitis; I10 Essential (primary) hypertension; G20 Parkinson's disease; I87.2 Venous insufficiency (chronic) (peripheral); E66.9 Obesity, unspecified; G47.00 Insomnia, unspecified; G25.81 Restless legs syndrome; G30.9 Alzheimer's disease, unspecified; F02.80 Dementia in other diseases classified elsewhere, unspecified severity, without behavioral disturbance, psychotic disturbance, mood disturbance, and anxiety; F41.8 Other specified anxiety disorders; G89.29 Other chronic pain; M54.9 Dorsalgia, unspecified; F17.210 Nicotine dependence, cigarettes, uncomplicated; Z86.718 Personal history of other venous thrombosis and embolism; Z98.1 Arthrodesis status; Z90.49 Acquired absence of other specified parts of digestive tract; Z98.890 Other specified postprocedural states; Z79.01 Long term (current) use of anticoagulants; Z79.899 Other long term (current) drug therapy
CPT/HCPCS: 36415; 73701; 80048; 80053; 81003; 82248; 83605; 83735; 84100; 84145; 85025; 85027; 85610; 85730; 87040; 93005; 93010; 94760; 96365-59; 96366-59; 96367-59; 96375-59; 96376-59; 99285-25; A9270; C9113; G0480; J0690; J0692; J1885; J3370; J7050; J7060; J7120; Q9967

== ENCOUNTER → 2023-03-23 | Outpatient (CLI) | payer OTHER ==
[~2023-03-23] MED LIST changes: +ABILIFY MYCITE5 M2 PO; +Acetaminophen650 M1 PO; +B-121000 MC3 PO; +BACITRACIN ZIN1 EAC1 TOP; +BISA10S PR; +CELE200 PO; +COLACE100 MG PO; +CYCL10 PO; +Coumadin7.5 MG PO; +DULCOLAX400 MG/5 M PO; +GLUCHON PO; +Gabapentin600 MG PO; +HYDROCORTISON28.4 G4 TOP; +LOPERAMIDE212 PO; +MIRALAX17 GM PO; +Mucus Relief400 MG PO; +NASAL SPRAY88 ML; +NYSTATIN15 GM TOP; +OYSTER SHELL 51 EAC2 PO; +QUET300 PO; +TOPI100 PO; +VISBIOME 112.51 EACH PO; +VITAMIN B-1100 M1 PO; +VITAMIN D31000 UNI1 PO; +VOLTAREN ARTHRI20 GM TOP
[2023-03-23 15:07] LABS: International Normalized Ratio 2.67; Prothrombin Time Results 26.5 Sec (9.7-11.5)
== END | disposition home or self-care (01) ==
LOC: LAB SHORT 13:21
PROVIDERS: Student in an Organized Health Care Education/Training Program
DX: I48.91 Unspecified atrial fibrillation (principal)
CPT/HCPCS: 85610

== ENCOUNTER 2023-07-05 08:42 | Emergency (ER) | payer OTHER ==
[~2023-07-05] VITALS: Ht 182.9 cm; Wt 95.2 kg
[2023-07-05 11:38] VITALS: BP 113/76
== END 2023-07-05 11:40 | disposition home or self-care (01) ==
LOC: ER 08:42
DX: R03.0 Elevated blood-pressure reading, without diagnosis of hypertension (principal); R40.0 Somnolence; Z79.899 Other long term (current) drug therapy; Z79.01 Long term (current) use of anticoagulants; I48.91 Unspecified atrial fibrillation; F17.210 Nicotine dependence, cigarettes, uncomplicated
CPT/HCPCS: 99283

== ENCOUNTER 2023-10-04 10:28 | Emergency (ER) | payer OTHER ==
[~2023-10-04] VITALS: Ht 185.4 cm; Wt 108.9 kg
[2023-10-04 10:44] VITALS: BP 108/77
[2023-10-04] MEDS ORDERED: Acetaminophen 500 MG Tab PO ONE (11:10)
[2023-10-04] MEDS ORDERED: Lidocaine 4% 1 Patch TOP ONE (11:10)
[2023-10-04] MEDS ORDERED: Acetaminophen500 MG PO (12:15)
[2023-10-04] MEDS ORDERED: LIDOCAINE1 EAC1 TOP (12:15)
[2023-10-04] MEDS ORDERED: Voltaren100 GM TOP (12:15)
[2023-10-04] MEDS ORDERED: BRACE (12:22)
== END 2023-10-04 13:24 | disposition home or self-care (01) ==
LOC: ER 10:28
DX: M25.561 Pain in right knee (principal); G89.29 Other chronic pain; L30.9 Dermatitis, unspecified; I48.91 Unspecified atrial fibrillation; F03.90 Unspecified dementia, unspecified severity, without behavioral disturbance, psychotic disturbance, mood disturbance, and anxiety; F41.9 Anxiety disorder, unspecified; F32.A Depression, unspecified; F17.210 Nicotine dependence, cigarettes, uncomplicated; Z79.899 Other long term (current) drug therapy; Z79.01 Long term (current) use of anticoagulants
CPT/HCPCS: 73560-RT; 99283-25; A9270

== ENCOUNTER 2023-10-05 15:30 | Emergency (ER) | payer OTHER ==
[~2023-10-05] VITALS: Ht 185.4 cm; Wt 99.8 kg
[~2023-10-05 15:30] MED LIST changes: +Acetaminophen500 MG PO; +BRACE; +LIDOCAINE1 EAC1 TOP; +Voltaren100 GM TOP
[2023-10-05] MEDS ORDERED: OxyCODONE HCL 5 MG TAB PO ONE (16:40)
[2023-10-05 18:15] VITALS: BP 122/77
== END 2023-10-05 18:53 | disposition home or self-care (01) ==
LOC: ER 15:30
DX: M25.561 Pain in right knee (principal); F03.90 Unspecified dementia, unspecified severity, without behavioral disturbance, psychotic disturbance, mood disturbance, and anxiety; F17.210 Nicotine dependence, cigarettes, uncomplicated; I48.91 Unspecified atrial fibrillation; Z86.718 Personal history of other venous thrombosis and embolism; Z79.899 Other long term (current) drug therapy
CPT/HCPCS: 73562-RT; 93971; 99284-25; A9270

== ENCOUNTER 2024-02-25 16:43 | Emergency (ER) | payer OTHER ==
[~2024-02-25] VITALS: Ht 185.4 cm; Wt 108.9 kg
[~2024-02-25 16:43] MED LIST changes: +BACTRIM DS TAB1 EAC1 PO
[2024-02-25 17:57] LABS: BASOPHILS ABSOLUTE AUTO 0.03 K/mm3 (0.00-0.23); BASOPHILS PERCENT AUTO 1 % (0-2); EOSINOPHILS ABSOLUTE AUTO 0.21 K/mm3 (0.00-0.68); EOSINOPHILS PERCENT AUTO 3 % (0-6); Hematocrit 36.5 % (37.0-53.0); Hemoglobin 11.6 g/dL (13.5-17.5); IMMATURE GRAN ABSOLUTE AUTO 0.01 K/mm3 (0.00-0.10); IMMATURE GRAN PERCENT AUTO 0 % (0-1); LYMPHOCYTES ABSOLUTE AUTO 2.42 K/mm3 (0.84-5.20); LYMPHOCYTES PERCENT AUTO 39 % (21-46); MONOCYTES ABSOLUTE AUTO 0.83 K/mm3 (0.16-1.47); MONOCYTES PERCENT AUTO 13 % (4-13); Mean Corpuscular HGB 26.7 pg (26.0-34.0); Mean Corpuscular HGB Conc 31.8 g/dL (31.5-36.5); Mean Corpuscular Volume 84 fL (80-100); Mean Platelet Volume 10.2 fL (9.1-12.4); NEUTROPHILS ABSOLUTE AUTO 2.68 K/mm3 (1.96-9.15); NEUTROPHILS PERCENT AUTO 43 % (41-73); Platelet Count 191 K/mm3 (150-400); RDW Coefficient Variation 14.8 % (11.7-14.2); RDW Standard Deviation 45.3 fL (35.1-46.3); Red Blood Cell Count 4.34 M/mm3 (4.30-5.90); White Blood Cell Count 6.18 K/mm3 (4.00-11.30)
[2024-02-25 18:16] LABS: Albumin, Blood 3.5 g/dL (3.4-5.0); Albumin/Globulin Ratio 0.9 (0.8-1.8); Bilirubin, Total 0.3 mg/dL (0.1-1.0); Bun/Creatinine Ratio 12.7 (12.0-20.0); Calcium, Blood 8.8 mg/dL (8.5-10.1); Creatinine, Blood 0.95 mg/dL (0.60-1.20); Globulin, Blood 3.8 g/dL (2.2-4.0); Potassium, Blood 3.7 mmol/L (3.5-5.5); Total Protein, Blood 7.3 g/dL (6.4-8.2)
[2024-02-25 19:07] VITALS: BP 103/73
[2024-02-25] MEDS ORDERED: CEPH500 PO (20:54)
[2024-02-25] MEDS ORDERED: Cephalexin Monohydrate 500 MG Cap PO ONE (20:55)
== END 2024-02-25 21:20 | disposition home or self-care (01) ==
LOC: ER 16:43
PROVIDERS: Student in an Organized Health Care Education/Training Program
DX: L03.116 Cellulitis of left lower limb (principal); I48.91 Unspecified atrial fibrillation; F17.210 Nicotine dependence, cigarettes, uncomplicated; Z79.01 Long term (current) use of anticoagulants; Z79.899 Other long term (current) drug therapy
CPT/HCPCS: 73630; 80053; 83605; 85025; 99284-25; A9270

== ENCOUNTER → 2024-06-04 | Outpatient (CLI) | payer OTHER ==
[2024-06-04 15:36] LABS: Bilirubin, Urine Neg (Neg); Blood, Urine Neg (Neg); Glucose Qualitative, Urine Neg (Neg); Ketones, Urine Neg (Neg); Leukocyte Esterase, Urine Neg (Neg); Nitrite, Urine Neg (Neg); Protein, Urine Neg (Neg); Urobilinogen, Urine NORM (Normal)
[2024-06-04 15:39] LABS: Appearance, Urine Clear (Clear); Color, Urine Pale Yellow (P-Yellow)
== END | disposition home or self-care (01) ==
LOC: LAB SHORT 14:10 → LAB 14:10
PROVIDERS: Family Medicine
DX: N39.0 Urinary tract infection, site not specified (principal)
CPT/HCPCS: 81003

== ENCOUNTER 2024-06-24 09:27 | Emergency (ER) | payer OTHER ==
[~2024-06-24] VITALS: Ht 185.4 cm; Wt 127.0 kg
[2024-06-24 10:16] LABS: BASOPHILS ABSOLUTE AUTO 0.03 K/mm3 (0.00-0.23); BASOPHILS PERCENT AUTO 1 % (0-2); EOSINOPHILS ABSOLUTE AUTO 0.15 K/mm3 (0.00-0.68); EOSINOPHILS PERCENT AUTO 3 % (0-6); Hematocrit 40.1 % (37.0-53.0); Hemoglobin 12.3 g/dL (13.5-17.5); IMMATURE GRAN ABSOLUTE AUTO 0.02 K/mm3 (0.00-0.10); IMMATURE GRAN PERCENT AUTO 0 % (0-1); LYMPHOCYTES ABSOLUTE AUTO 2.16 K/mm3 (0.84-5.20); LYMPHOCYTES PERCENT AUTO 39 % (21-46); MONOCYTES ABSOLUTE AUTO 0.68 K/mm3 (0.16-1.47); MONOCYTES PERCENT AUTO 12 % (4-13); Mean Corpuscular HGB 25.7 pg (26.0-34.0); Mean Corpuscular HGB Conc 30.7 g/dL (31.5-36.5); Mean Corpuscular Volume 84 fL (80-100); Mean Platelet Volume 10.2 fL (9.1-12.4); NEUTROPHILS ABSOLUTE AUTO 2.55 K/mm3 (1.96-9.15); NEUTROPHILS PERCENT AUTO 46 % (41-73); Platelet Count 200 K/mm3 (150-400); RDW Coefficient Variation 15.1 % (11.7-14.2); RDW Standard Deviation 45.9 fL (35.1-46.3); Red Blood Cell Count 4.79 M/mm3 (4.30-5.90); White Blood Cell Count 5.59 K/mm3 (4.00-11.30)
[2024-06-24 10:22] LABS: International Normalized Ratio 1.02; Prothrombin Time Results 10.9 Sec (9.7-11.5)
[2024-06-24 10:29] LABS: Albumin, Blood 3.5 g/dL (3.4-5.0); Albumin/Globulin Ratio 0.9 (0.8-1.8); Bilirubin, Total 0.4 mg/dL (0.1-1.0); Bun/Creatinine Ratio 13.5 (12.0-20.0); Calcium, Blood 9.1 mg/dL (8.5-10.1); Creatinine, Blood 1.04 mg/dL (0.60-1.20); Globulin, Blood 3.9 g/dL (2.2-4.0); Total Protein, Blood 7.4 g/dL (6.4-8.2)
[2024-06-24 15:57] LABS: Source, Urine Clean Catch
[2024-06-24 16:03] LABS: Appearance, Urine Clear (Clear); Bilirubin, Urine Neg (Neg); Blood, Urine Neg (Neg); Color, Urine Yellow (P-Yellow); Glucose Qualitative, Urine Neg (Neg); Ketones, Urine Neg (Neg); Leukocyte Esterase, Urine Neg (Neg); Nitrite, Urine Neg (Neg); Protein, Urine Neg (Neg); Specific Gravity, Urine 1.015 (1.003-1.022); Urobilinogen, Urine NORM (Normal)
[2024-06-24 17:41] VITALS: BP 100/74
== END 2024-06-24 17:43 | disposition home or self-care (01) ==
LOC: ER 09:27
PROVIDERS: Family Medicine
DX: R41.82 Altered mental status, unspecified (principal); F03.90 Unspecified dementia, unspecified severity, without behavioral disturbance, psychotic disturbance, mood disturbance, and anxiety; I48.91 Unspecified atrial fibrillation; F17.210 Nicotine dependence, cigarettes, uncomplicated; Z79.899 Other long term (current) drug therapy; Z79.01 Long term (current) use of anticoagulants
CPT/HCPCS: 70450; 80053; 81003; 85025; 85610; 85730; 99285-25

== ENCOUNTER → 2024-07-31 | Outpatient (CLI) | payer OTHER ==
[2024-07-31 11:50] LABS: Source, Urine Clean Catch
[2024-07-31 15:16] LABS: Appearance, Urine Clear (Clear); Bilirubin, Urine Neg (Neg); Blood, Urine Neg (Neg); Color, Urine Yellow (P-Yellow); Glucose Qualitative, Urine Neg (Neg); Ketones, Urine Neg (Neg); Leukocyte Esterase, Urine Neg (Neg); Nitrite, Urine Neg (Neg); Protein, Urine Neg (Neg); Specific Gravity, Urine 1.005 (1.003-1.022); Urobilinogen, Urine NORM (Normal)
[2024-07-31 15:42] LABS: Bacteria Rare /hpf; Red Blood Cells, Urine 0-2 /hpf (0-2); Squamous Epithelial Cells Not Seen /hpf (Few); White Blood Cells, Urine 0-2 /hpf (0-5)
== END | disposition home or self-care (01) ==
LOC: LAB SHORT 11:48 → LAB 11:48
PROVIDERS: Family Medicine
DX: N39.0 Urinary tract infection, site not specified (principal)
CPT/HCPCS: 81001; 81003

== ENCOUNTER → 2024-08-22 | Outpatient (CLI) | payer OTHER ==
[2024-08-22 13:44] LABS: Source, Urine Clean Catch
[2024-08-22 14:40] LABS: Appearance, Urine Clear (Clear); Bilirubin, Urine Neg (Neg); Blood, Urine Neg (Neg); Color, Urine Yellow (P-Yellow); Glucose Qualitative, Urine Neg (Neg); Ketones, Urine Neg (Neg); Leukocyte Esterase, Urine Neg (Neg); Nitrite, Urine Neg (Neg); Protein, Urine Neg (Neg); Urobilinogen, Urine NORM (Normal)
== END ==
LOC: LAB 13:41 → LAB SHORT 13:41
PROVIDERS: Family Medicine
DX: N39.0 Urinary tract infection, site not specified (principal)
CPT/HCPCS: 81003

== ENCOUNTER 2024-09-17 09:17 | Emergency (ER) | payer OTHER ==
[~2024-09-17] VITALS: Ht 185.4 cm; Wt 145.2 kg
[2024-09-17 10:08] LABS: BASOPHILS ABSOLUTE AUTO 0.06 K/mm3 (0.00-0.23); BASOPHILS PERCENT AUTO 0 % (0-2); EOSINOPHILS PERCENT AUTO 0 % (0-6); Hematocrit 37.2 % (37.0-53.0); Hemoglobin 12.1 g/dL (13.5-17.5); IMMATURE GRAN ABSOLUTE AUTO 0.15 K/mm3 (0.00-0.10); IMMATURE GRAN PERCENT AUTO 1 % (0-1); LYMPHOCYTES ABSOLUTE AUTO 1.01 K/mm3 (0.84-5.20); LYMPHOCYTES PERCENT AUTO 6 % (21-46); MONOCYTES PERCENT AUTO 6 % (4-13); Mean Corpuscular HGB 25.2 pg (26.0-34.0); Mean Corpuscular HGB Conc 32.5 g/dL (31.5-36.5); Mean Corpuscular Volume 77 fL (80-100); NEUTROPHILS ABSOLUTE AUTO 13.62 K/mm3 (1.96-9.15); NEUTROPHILS PERCENT AUTO 86 % (41-73); NRBC ABSOLUTE 0.03 K/mm3 (0.00-0.02); NRBC Auto 0.2 /100 WBC (0.0-0.2); RDW Coefficient Variation 15.9 % (11.7-14.2); RDW Standard Deviation 44.7 fL (35.1-46.3); Red Blood Cell Count 4.81 M/mm3 (4.30-5.90); White Blood Cell Count 15.84 K/mm3 (4.00-11.30)
[2024-09-17 10:09] LABS: Albumin, Blood 3.4 g/dL (3.4-5.0); Albumin/Globulin Ratio 0.8 (0.8-1.8); Bilirubin, Total 0.5 mg/dL (0.1-1.0); Bun/Creatinine Ratio 10.7 (12.0-20.0); Calcium, Blood 8.8 mg/dL (8.5-10.1); Creatinine, Blood 1.21 mg/dL (0.60-1.20); Globulin, Blood 4.1 g/dL (2.2-4.0); Potassium, Blood 3.8 mmol/L (3.5-5.5); Total Protein, Blood 7.5 g/dL (6.4-8.2)
[2024-09-17 10:21] LABS: Base Excess Venous -4.5 mmol/L; Bicarbonate Venous 21.2 mmol/L (24.0-30.0); PCO2 Venous 34.8 mmHg (38-42); pH Blood Venous 7.38 (7.34-7.37)
[2024-09-17 10:22] LABS: Mean Platelet Volume 10.4 fL (9.1-12.4); Platelet Count 208 K/mm3 (150-400)
[2024-09-17 10:50] LABS: Influenza A, PCR NEGATIVE (NEGATIVE); Influenza B, PCR NEGATIVE (NEGATIVE); Resp Syncytial Virus, PCR NEGATIVE (NEGATIVE); SARS-Cov-2 (COVID-19) PCR, MMC NEGATIVE (NEGATIVE)
[2024-09-17 10:50] LABS: International Normalized Ratio 1.06; Prothrombin Time Results 11.3 Sec (9.7-11.5)
[2024-09-17 11:34] LABS: Source, Urine Clean Catch
[2024-09-17 11:41] LABS: Appearance, Urine Clear (Clear); Bilirubin, Urine Neg (Neg); Blood, Urine Neg (Neg); Color, Urine Yellow (P-Yellow); Glucose Qualitative, Urine Neg (Neg); Ketones, Urine Neg (Neg); Leukocyte Esterase, Urine 1+ (Neg); Nitrite, Urine Neg (Neg); Protein, Urine 1+ (Neg); Urobilinogen, Urine 1+ (Normal); pH, Urine 6.5 (5.0-8.0)
[2024-09-17 11:49] LABS: Bacteria Few /hpf; Red Blood Cells, Urine 0-2 /hpf (0-2); Squamous Epithelial Cells Not Seen /hpf (Few); White Blood Cells, Urine 0-2 /hpf (0-5)
[2024-09-17] MEDS ORDERED: NS 1,000 ML IV SCH (11:55)
[2024-09-17 12:35] VITALS: BP 100/68
== END 2024-09-17 14:39 | disposition home or self-care (01) ==
LOC: ER 09:17
PROVIDERS: Emergency Medicine
DX: R03.1 Nonspecific low blood-pressure reading (principal); E86.0 Dehydration; F03.90 Unspecified dementia, unspecified severity, without behavioral disturbance, psychotic disturbance, mood disturbance, and anxiety; I48.91 Unspecified atrial fibrillation; F32.A Depression, unspecified; F41.9 Anxiety disorder, unspecified; F17.210 Nicotine dependence, cigarettes, uncomplicated; Z79.899 Other long term (current) drug therapy; Z79.01 Long term (current) use of anticoagulants
CPT/HCPCS: 0241U; 36415; 70450; 71045; 80053; 81001; 82803; 83605; 83880; 84145; 84484; 85025; 85610; 87040; 87086; 93005; 93010; 96360; 99285-25; J7030

== ENCOUNTER 2024-09-19 19:47 | Emergency (ER) | payer OTHER ==
[~2024-09-19] VITALS: Ht 185.4 cm; Wt 127.0 kg
[2024-09-19 20:33] LABS: BASOPHILS ABSOLUTE AUTO 0.03 K/mm3 (0.00-0.23); BASOPHILS PERCENT AUTO 0 % (0-2); EOSINOPHILS ABSOLUTE AUTO 0.23 K/mm3 (0.00-0.68); EOSINOPHILS PERCENT AUTO 2 % (0-6); Hemoglobin 11.3 g/dL (13.5-17.5); IMMATURE GRAN ABSOLUTE AUTO 0.05 K/mm3 (0.00-0.10); IMMATURE GRAN PERCENT AUTO 1 % (0-1); LYMPHOCYTES ABSOLUTE AUTO 2.13 K/mm3 (0.84-5.20); LYMPHOCYTES PERCENT AUTO 20 % (21-46); MONOCYTES PERCENT AUTO 12 % (4-13); Mean Corpuscular HGB 24.9 pg (26.0-34.0); Mean Corpuscular HGB Conc 31.4 g/dL (31.5-36.5); Mean Corpuscular Volume 80 fL (80-100); Mean Platelet Volume 10.2 fL (9.1-12.4); NEUTROPHILS ABSOLUTE AUTO 7.16 K/mm3 (1.96-9.15); NEUTROPHILS PERCENT AUTO 66 % (41-73); Platelet Count 192 K/mm3 (150-400); RDW Coefficient Variation 16.3 % (11.7-14.2); RDW Standard Deviation 46.7 fL (35.1-46.3); Red Blood Cell Count 4.53 M/mm3 (4.30-5.90)
[2024-09-19] MEDS ORDERED: Clindamycin 600mg in D5W 50 ML IV ONE (20:40)
[2024-09-19 20:58] LABS: Bun/Creatinine Ratio 10.3 (12.0-20.0); Calcium, Blood 8.7 mg/dL (8.5-10.1); Creatinine, Blood 0.88 mg/dL (0.60-1.20)
[2024-09-19] MEDS ORDERED: CLIN300 PO (21:22)
[2024-09-19] MEDS ORDERED: RX Prepack 6 Tabs Oxycodone 5mg UD ONE (21:30)
[2024-09-19] MEDS ORDERED: Acetaminophen 500 MG Tab PO ONE (22:10)
[2024-09-19 22:40] VITALS: BP 160/84
== END 2024-09-19 22:40 | disposition home or self-care (01) ==
LOC: ER 19:47
PROVIDERS: Emergency Medicine
DX: L03.115 Cellulitis of right lower limb (principal); I48.91 Unspecified atrial fibrillation; F03.90 Unspecified dementia, unspecified severity, without behavioral disturbance, psychotic disturbance, mood disturbance, and anxiety; F17.210 Nicotine dependence, cigarettes, uncomplicated; Z86.718 Personal history of other venous thrombosis and embolism; Z79.01 Long term (current) use of anticoagulants; Z79.899 Other long term (current) drug therapy
CPT/HCPCS: 80048; 85025; 93971; 96365; 99284-25; A9270

== ENCOUNTER 2024-09-20 13:24 | Emergency (ER) | payer OTHER ==
[~2024-09-20] VITALS: Ht 185.4 cm; Wt 90.7 kg
[~2024-09-20 13:24] MED LIST changes: +CLIN300 PO
[2024-09-20 17:30] VITALS: BP 126/69
[2024-09-20 17:50] LABS: BASOPHILS ABSOLUTE AUTO 0.04 K/mm3 (0.00-0.23); BASOPHILS PERCENT AUTO 0 % (0-2); EOSINOPHILS ABSOLUTE AUTO 0.14 K/mm3 (0.00-0.68); EOSINOPHILS PERCENT AUTO 2 % (0-6); Hematocrit 36.7 % (37.0-53.0); Hemoglobin 11.5 g/dL (13.5-17.5); IMMATURE GRAN ABSOLUTE AUTO 0.03 K/mm3 (0.00-0.10); IMMATURE GRAN PERCENT AUTO 0 % (0-1); LYMPHOCYTES ABSOLUTE AUTO 2.68 K/mm3 (0.84-5.20); LYMPHOCYTES PERCENT AUTO 29 % (21-46); MONOCYTES ABSOLUTE AUTO 1.34 K/mm3 (0.16-1.47); MONOCYTES PERCENT AUTO 14 % (4-13); Mean Corpuscular HGB 24.8 pg (26.0-34.0); Mean Corpuscular HGB Conc 31.3 g/dL (31.5-36.5); Mean Corpuscular Volume 79 fL (80-100); Mean Platelet Volume 9.9 fL (9.1-12.4); NEUTROPHILS ABSOLUTE AUTO 5.11 K/mm3 (1.96-9.15); NEUTROPHILS PERCENT AUTO 55 % (41-73); Platelet Count 219 K/mm3 (150-400); RDW Coefficient Variation 16.5 % (11.7-14.2); Red Blood Cell Count 4.64 M/mm3 (4.30-5.90); White Blood Cell Count 9.34 K/mm3 (4.00-11.30)
[2024-09-20 18:04] LABS: Prothrombin Time Results 10.7 Sec (9.7-11.5)
[2024-09-20 18:18] LABS: Free Thyroxine 0.82 ng/dL (0.70-1.60)
[2024-09-20 18:23] LABS: Thyroid Stimulating Hormone 0.964 uIU/mL (0.360-4.800); Triiodothyronine, Free 1.93 pg/mL (2.18-3.98)
[2024-09-20 18:24] LABS: Albumin, Blood 3.5 g/dL (3.4-5.0); Albumin/Globulin Ratio 0.8 (0.8-1.8); Bilirubin, Total 0.7 mg/dL (0.1-1.0); Bun/Creatinine Ratio 8.9 (12.0-20.0); Calcium, Blood 9.3 mg/dL (8.5-10.1); Creatinine, Blood 0.9 mg/dL (0.60-1.20); Globulin, Blood 4.3 g/dL (2.2-4.0); Potassium, Blood 3.6 mmol/L (3.5-5.5); Total Protein, Blood 7.8 g/dL (6.4-8.2)
[2024-09-20 19:54] LABS: Bicarbonate Venous 22.4 mmol/L (24.0-30.0); PCO2 Venous 36.7 mmHg (38-42); pH Blood Venous 7.39 (7.34-7.37)
[2024-09-20 19:55] LABS: Base Excess Venous -2.8 mmol/L
== END 2024-09-20 20:56 | disposition home or self-care (01) ==
LOC: ER 13:24
PROVIDERS: Student in an Organized Health Care Education/Training Program
DX: R40.4 Transient alteration of awareness (principal); I48.91 Unspecified atrial fibrillation; F17.210 Nicotine dependence, cigarettes, uncomplicated; Z79.01 Long term (current) use of anticoagulants; Z79.899 Other long term (current) drug therapy
CPT/HCPCS: 36415; 71045; 80053; 82140; 82803; 83605; 84439; 84443; 84481; 85025; 85610; 99285-25